=== PATIENT | female | born 1995 | race Caucasian/White ===

== ENCOUNTER → 2019-05-23 16:26 | Outpatient (CLI) | payer BC, SELFPAY ==
--- NOTE | ~2019-05-23 | MR_ITS ---
EXAMINATION: MR thoracic spine wo con EXAM DATE: 05/23/2019 17:51 INDICATION: Chronic mid back pain. No known recent injury. TECHNIQUE: Multi-sequential, multiplanar MR images of the thoracic spine were obtained without contra st. Sagittal T1, T2, T2 fat saturation, axial T2 weighted images reviewed. There is no prior study for comparison. FINDINGS: The vertebral bodies are aligned in the AP dimension. There is minimal disc disease at lowe r thoracic level probably T11-12 with mild right neural foraminal stenosis. Vertebral body and disc h eights are otherwise well-maintained. There is mild mid thoracic facet arthropathy. There are no susp icious marrow signal abnormalities. The spinal cord signal intensity and intrinsic morphology is norm al. Paraspinal soft tissue is unremarkable. IMPRESSION: Mild mid thoracic facet arthropathy and lower thoracic disc disease. No significant sten osis. Reviewed, dictated and finalized at location B. S [facility]AGGER IMPRESSION: Mild mid thoracic facet arthropathy and lower thoracic disc diseas e. No significant stenosis.
== END ==
PROVIDERS: Visit Provider Family Medicine
DX: M54.6 Pain in thoracic spine (principal)
CPT/HCPCS: 72146